=== PATIENT | female | born 1990 | race Caucasian/White ===

== ENCOUNTER → 2020-03-23 09:07 | Outpatient (CLI) | payer OTHER, SELFPAY ==
--- NOTE | ~2020-03-23 | US_ITS ---
EXAMINATION: US OB >= 14 weeks Fetus DATE: 03/23/2020 09:45 INDICATION: Second trimester anatomic survey TECHNIQUE: Real-time ultrasound of the pelvis was performed. COMPARISON: None. FINDINGS: There is a single living fetus in breech presentation. The placenta is anterior and 5.4 cm from the i nternal cervical os. heart rate is 154 beats per minute (bpm). cardiac activity and feta l movement are noted. The amniotic fluid index is subjectively normal. The following anatomy was identified as normal: 4 chamber heart 3 vessel cord cord insertion kidneys urinary bladder stomach spine diaphragm ventricles cisterna magna cerebellum The following biometric data were obtained: Biparietal diameter (BPD): 4.5 cm; head circumference (HC): 16.4 cm; abdominal circumference (AC): 14 .0 cm; femur length (FL): 2.8 cm. These measurements are concordant. Estimated weight is 276 g +/- 41 g, which correlates with the 38th percentile when 08/15/2020 is used as estimated date of delivery. As single measurements, these parameters are each equal to the following estimated gestational ages w ith ranges of +/- 2 standard deviations: BPD: 19 weeks 5 days ( 18 weeks 0 days - 21 weeks 3 days). HC: 19 weeks 1 days ( 17 weeks 5 days - 20 weeks 4 days). AC: 19 weeks 3 days ( 17 weeks 2 days - 21 weeks 3 days). FL: 18 weeks 6 days ( 17 weeks 0 days - 20 weeks 5 days). estimated gestational age based solely on measurements from this exam is 19 weeks 2 days +/- 1 weeks 2 days. IMPRESSION: 1. Single living fetus in breech presentation. 2. Estimated weight is 276 g +/- 41 g, which correlates with the 38th percentile when 08/15/2020 is used as estimated date of delivery. Reviewed, dictated and finalized at location A. [employer] IMPRESSION: 1. Single living fetus in breech presentation. 2. Estimated weight is 276 g +/- 41 g, which correlates with the 38th per centile when 08/15/2020 is used as estimated date of delivery.
== END ==
PROVIDERS: Visit Provider Obstetrics & Gynecology Gynecologic Oncology
DX: Z36.9 Encounter for antenatal screening, unspecified (principal); Z3A.00 Weeks of gestation of pregnancy not specified
CPT/HCPCS: 76805